=== PATIENT | female | born 1940 | race Caucasian/White ===

== ENCOUNTER 2019-11-05 14:26 | Outpatient (CLI) | payer MEDICARE, BC ==
--- NOTE | 2019-11-06 09:12 | MRI ---
BILATERAL BREAST MRI WITH AND WITHOUT IV CONTRAST AND ADDITIONAL EVALUATION ON AN INDEPENDENT 3D WORK STATION: HISTORY: An 78-year-old female with left breast mass. FINDINGS: There are bilateral silicone breast implants. There is intracapsular rupture bilaterally and extraca psular rupture on the left. There are multiple pockets of extracapsular silicone in the left breast. No evidence of suspicious mass or suspicious enhancement is seen on either side. No axillary or in ternal mammary lymphadenopathy is seen. IMPRESSION: BIRADS category 2 - benign findings. Return to annual mammographic screening. This exam was interpreted in consultation with Dr. Royer Velasco who concurs. POS: [facility]
== END 2019-11-05 14:27 | disposition home or self-care (01) ==
LOC: BICMRI 14:26
PROVIDERS: ATTEND Surgery
DX: N63.20 Unspecified lump in the left breast, unspecified quadrant (principal)
CPT/HCPCS: 82565; C8908; A9577

== ENCOUNTER 2020-01-03 07:49 | Outpatient (CLI) | payer MEDICARE, BC, OTHER ==
[2020-01-04 12:32] LABS: SARS-CoV-2 MS2 Positive; SARS-CoV-2 N Gene Negative; SARS-CoV-2 S Gene Negative; SARS-CoV-2 by NAA Not Detected (NotDetected); SARS-CoV-2 orf1ab Negative
--- NOTE | 2020-01-06 16:04 | EKG ---
Test Reason : PREOP Blood Pressure : / mmHG Vent. Rate : 062 BPM Atrial Rate : 062 BPM P-R Int : 178 ms QRS Dur : 086 ms QT Int : 438 ms P-R-T Axes : 036 056 072 degrees QTc Int : 444 ms Normal sinus rhythm Normal ECG No previous ECGs available Confirmed by Yakov SIDHU ([id number]) on 01/06/2020 4:03:48 PM Referred By: Laina ROSA Confirmed By:Yakov SIDHU
== END 2020-01-03 07:50 | disposition home or self-care (01) ==
LOC: LABBT 07:49
PROVIDERS: ATTEND Plastic Surgery
DX: Z01.818 Encounter for other preprocedural examination (principal); Z20.828 Contact with and (suspected) exposure to other viral communicable diseases
CPT/HCPCS: 93005; U0003; 87635; 93010

== ENCOUNTER 2020-01-07 10:07 | Day surgery (SDC) | payer MEDICARE, BC ==
[2020-01-03 15:10] VITALS: BMI 31.3
[~2020-01-07 10:07] MED LIST: Dexamethasone 20 MG/5 ML VIAL ONE; Lidocaine 1% PF 5 ML VIAL ONE; Ondansetron PF 4 MG/2 ML Vial ONE; PROPOFOL 200 MG/20 ML VIAL ONE
[2020-01-07] MEDS ORDERED: EPINEPHrine 1 MG/ML AMP ONE (10:37)
[2020-01-07] MEDS ORDERED: Bupivacaine 0.25% HCL 30 ML VIAL ONE ×2 (10:37→13:27)
[2020-01-07] MEDS ORDERED: Sodium Chloride 0.9% 0 ML ONE (10:37)
[2020-01-07] MEDS ORDERED: Fentanyl 100 MCG/2 ML VIAL ONE ×4 (11:03→16:38)
[2020-01-07] MEDS ORDERED: Meperidine HCl/PF 25 MG/ML VIAL SLOW IVP PRN (16:07)
[2020-01-07] MEDS ORDERED: Ondansetron HCl/PF 4 MG/2 ML Vial IVP PRN (16:07)
[2020-01-07] MEDS ORDERED: HYDROmorphone 2 MG/ML VIAL SLOW IVP PRN (16:07)
[2020-01-07] MEDS ORDERED: Promethazine HCl 25 MG/ML VIAL SLOW IVP PRN (16:07)
[2020-01-07] MEDS ORDERED: Ondansetron ODT 4 MG TAB ONE (17:11)
[2020-01-07] MEDS ORDERED: HYDROcodone/Acetaminophen 5/325 mg Tablet ONE (17:12)
--- NOTE | 2020-01-08 13:36 | OP ---
DATE OF PROCEDURE: 01/07/2020 PREOPERATIVE DIAGNOSIS: Bilateral capsular contracture. POSTOPERATIVE DIAGNOSIS: Bilateral capsular contracture. PROCEDURE: Bilateral capsulectomy. OPERATIVE FINDINGS: Left breast implant rupture. PROCEDURE: Following induction of adequate anesthesia, the patient was prepped and draped in usual sterile fashion in supine position. Attention was first turned to the left breast. The patient had obvious swelling just beneath the dermis at the 6 o'clock position of the areola. She was also noted to have a severely . and preoperatively discussed with the patient as well as the possibility of . An inframammary crease incision was made. Dissection was carried sharply down to the prepectoral implant. The implant was circumferentially dissected free, except for the area immediately behind the nipple. At this point, the dissection became significantly more tedious in an attempt to peel the implant off the dermis. When this could not be done, the skin was excised. This ellipse included the nipple areola. The field was then copiously irrigated closure of the two incisions in layers using interrupted and running 3-0 Monocryl suture. A drain was placed prior to closure. Attention was turned to the right breast. A similar procedure was done, except the circumferential dissection did not involve any tissue close to the nipple. The entire operation was able to be done through the inframammary crease approach. Again, the field was copiously irrigated and inspected for meticulous hemostasis prior to closure over a drain. Closure was done in a similar fashion. The patient tolerated the procedure well. Job ID: [id number]
== END 2020-01-07 19:10 | disposition home or self-care (01) ==
LOC: SDC 10:07
PROVIDERS: ATTEND Plastic Surgery
PROC: 0HPU0JZ Removal of Synthetic Substitute from Left Breast, Open Approach (ICD-10-PCS; principal; 2020-01-07)
PROC: 0HPT0JZ Removal of Synthetic Substitute from Right Breast, Open Approach (ICD-10-PCS; 2020-01-07)
DX: T85.44XA Capsular contracture of breast implant, initial encounter (principal); T85.49XA Other mechanical complication of breast prosthesis and implant, initial encounter; L82.1 Other seborrheic keratosis; E78.5 Hyperlipidemia, unspecified; E03.9 Hypothyroidism, unspecified; M19.90 Unspecified osteoarthritis, unspecified site; F17.210 Nicotine dependence, cigarettes, uncomplicated; Z79.1 Long term (current) use of non-steroidal anti-inflammatories (NSAID); Z79.899 Other long term (current) drug therapy; Z88.0 Allergy status to penicillin
CPT/HCPCS: 88304; 88311; J0171; J0690; J1100; J2405; J2704; J3010; J3490; Q0162; S0020